=== PATIENT | female | born 1995 | race Two or more races ===

== ENCOUNTER 2022-06-15 10:13 | Emergency (ER) | payer OTHER ==
[~2022-06-15] VITALS: Ht 160 cm; Wt 54.4 kg
[2022-06-15] MEDS ORDERED: TAMS0.4C PO (10:21)
[2022-06-15] MEDS ORDERED: LEVOFLOXACIN500 MG PO (10:22)
[2022-06-15] MEDS ORDERED: CEPHALEXIN750 MG (10:22)
[2022-06-15] MEDS ORDERED: NORFLEX100MG PO (10:22)
[2022-06-15] MEDS ORDERED: OMEPRAZOLE MAGN20 MG (10:22)
[2022-06-15] MEDS ORDERED: INTESTINEX680 M1 PO (10:22)
[2022-06-15] MEDS ORDERED: HYOSCYAMINE0.125 M2 PO (10:23)
== END 2022-06-15 17:53 | disposition home or self-care (01) ==
LOC: ER 10:13
DX: M94.0 Chondrocostal junction syndrome [Tietze] (principal)